=== PATIENT | female | born 1975 | race Caucasian/White ===

== ENCOUNTER → 2020-10-05 12:32 | Outpatient (CLI) | payer OTHER, SELFPAY ==
[2020-10-05 20:47] LABS: COVID19 - ORCAS (NP or Nasal) Negative (Negative)
== END ==
PROVIDERS: Visit Provider Physician Assistant Medical
DX: Z20.822 Contact with and (suspected) exposure to COVID-19 (principal)
CPT/HCPCS: U0003

== ENCOUNTER → 2021-03-14 19:32 | Outpatient (CLI) | payer OTHER, SELFPAY ==
--- NOTE | 2021-03-14 | DI.MRI.S_ITS ---
PROCEDURE: MR LUMBAR SPINE WO CON INDICATIONS: SEVERE LEFT SIDED SCIATICA TECHNIQUE: Noncontrast sagittal T1 spin echo and T2 fast echo, sagittal STIR, axial T1 and T2 fast spin echo through the lumbar spine. In cases with scoliosis, additional coronal T2 fast spin echo may be performed. COMPARISON: [facility] ([place]), CR, XR LUMBAR SPINE 2-3V, 02/08/2021, 8:39. FINDINGS: Image quality: Excellent. Alignment and Curvature: There is normal bony alignment. Bone Marrow: Modic type 2 reactive endplate changes noted adjacent to the L5-S1 disc. No acute vertebral body compression fractures. Spinal Cord: Conus medullaris terminates at the L1 level. Visualized cord demonstrates normal signal and size. Paraspinous Soft Tissues: No paravertebral masses. T12-L1: Normal appearance. L1-L2: Slight loss of disc signal. Mild, diffuse disc bulge. No central stenosis. No neural foraminal narrowing. No neural compression. L2-L3: Slight loss of disc signal. Mild, diffuse disc bulge. No central stenosis. No neural foraminal narrowing. No neural compression. L3-L4: Slight loss of disc signal. Mild, diffuse disc bulge. No central stenosis. No neural foraminal narrowing. No neural compression. Fissures noted in the left foraminal and anterior annulus. L4-L5: Slight loss of disc signal. Mild, diffuse disc bulge. Mild bilateral facet hypertrophy. No central stenosis. No neural foraminal narrowing. No neural compression. L5-S1: Loss of disc signal and height. Mild, diffuse disc bulge. Large right central disc extrusion. Extruded disc material abuts and compresses the traversing right S1 nerve root. Mild bilateral facet hypertrophy. Mild narrowing of the central canal. Moderate right neural foraminal narrowing. IMPRESSION: 1. Large right central L5-S1 disc extrusion which compresses the traversing right S1 nerve root. 2. Multilevel degenerative disc disease. 3. Multilevel facet arthropathy. 4. No severe central canal narrowing. 5. No severe neural foraminal narrowing. 6. L3-L4 disc annulus fissures. Dictated by: Pat Mccord MD, PhD on 03/15/2021 at 9:48 Approved by: Pat Mccord MD, PhD on 03/15/2021 at 9:52
== END ==
PROVIDERS: PCP Family Medicine; Referring Provider Family Medicine; Visit Provider Family Medicine
DX: M51.17 Intervertebral disc disorders with radiculopathy, lumbosacral region (principal); M47.27 Other spondylosis with radiculopathy, lumbosacral region
CPT/HCPCS: 72148